=== PATIENT | female | born 1990 | race Two or more races ===

== ENCOUNTER 2022-07-02 20:56 | Emergency (ER) | payer SELFPAY ==
[~2022-07-02] VITALS: Ht 162.6 cm; Wt 65.0 kg
[2022-07-03 00:40] LABS: Eosinophils # (auto) 0 10 ^3/uL (0-0.8); Hemoglobin 7.6 g/dL (12.2-16.2); Monocytes # (auto) 0.8 10 ^3/uL (0-1.3)
[2022-07-03 00:43] LABS: Basophils # (auto) 0 10 ^3/uL (0-0.2); Basophils % (auto) 0.2 % (0.0-2.0); Hematocrit 25.3 % (36.0-46.0); Lymphocytes # (auto) 0.5 10 ^3/uL (0.4-5.4); Lymphocytes % (auto) 3.8 % (10.0-50.0); Mean Corpuscular Hemoglobin 19.1 pg (28.0-32.0); Mean Corpuscular Volume 63.6 fL (80.0-100.0); Monocytes % (auto) 5.8 % (0.0-12.0); Neutrophils % (auto) 90.2 % (37.0-80.0); Red Blood Cells 3.98 10^6/uL (4.0-5.20); Red Cell Distribution Width 17.6 % (11.8-14.3); White Blood Cell 14.4 10^3/uL (4.4-10.8)
[2022-07-03 00:57] LABS: Albumin 3.9 g/dL (3.4-5.0); Calcium 9.1 mg/dL (8.5-10.1); Potassium 3.7 mmol/L (3.5-5.1)
[2022-07-03 00:59] LABS: BUN/Creatinine Ratio 20.5
[2022-07-03 01:02] LABS: Bilirubin, Total 0.3 mg/dL (0.2-1.0); Total Protein 7.4 g/dL (6.4-8.2)
[2022-07-03] MEDS ORDERED: IRON150T2 PO (04:52)
[2022-07-03 04:58] VITALS: BP 128/88
== END 2022-07-03 04:58 | disposition home or self-care (01) ==
LOC: ER 20:56 → EDBD 20:56 → ER 07-03 04:58
DX: G56.30 Lesion of radial nerve, unspecified upper limb (principal); M25.531 Pain in right wrist; D64.9 Anemia, unspecified; Z98.890 Other specified postprocedural states; X58.XXXA Exposure to other specified factors, initial encounter; Y93.23 Activity, snow (alpine) (downhill) skiing, snowboarding, sledding, tobogganing and snow tubing; Y92.89 Other specified places as the place of occurrence of the external cause; Y99.8 Other external cause status
CPT/HCPCS: 36415; 70450; 71250; 72125; 73110; 80053; 85025